=== PATIENT | female | born 1970 | race Caucasian/White ===

== ENCOUNTER → 2025-03-11 08:28 | Outpatient (REF) | payer BC, SELFPAY | LOC: RCS 08:28 | PROVIDERS: ATTENDING PHYSICIAN Internal Medicine Cardiovascular Disease; FAMILY PHYSICIAN Family Medicine | DX: R07.2 Precordial pain (principal) | CPT/HCPCS: 93017; 93350 ==

== ENCOUNTER → 2025-03-19 12:37 | Outpatient (REF) | payer BC, SELFPAY | LOC: HWRAD 12:37 | PROVIDERS: ATTENDING PHYSICIAN Internal Medicine Cardiovascular Disease; FAMILY PHYSICIAN Family Medicine | DX: E78.2 Mixed hyperlipidemia (principal) | CPT/HCPCS: 75571 ==